=== PATIENT | female | born 1980 | race Caucasian/White ===

== ENCOUNTER 2020-10-10 09:14 | Outpatient (RCR) | payer OTHER, SELFPAY | END 2021-01-08 23:59 | disposition home or self-care (01) | LOC: ANHBWCAUD 09:14 | DX: Z46.1 Encounter for fitting and adjustment of hearing aid (principal) | CPT/HCPCS: V5014 ==

== ENCOUNTER 2021-05-03 08:29 | Outpatient (CLI) | payer OTHER, SELFPAY | END 2021-05-03 08:30 | disposition home or self-care (01) | LOC: ANHBWCAUD 08:30 | PROVIDERS: Visit Provider Otolaryngology | DX: H66.90 Otitis media, unspecified, unspecified ear (principal); H90.6 Mixed conductive and sensorineural hearing loss, bilateral | CPT/HCPCS: 92557 ==

== ENCOUNTER 2021-05-22 09:31 | Outpatient (RCR) | payer OTHER, SELFPAY | END 2021-08-20 23:59 | disposition home or self-care (01) | LOC: ANHBWCAUD 09:31 | PROVIDERS: Visit Provider Otolaryngology | DX: Z46.1 Encounter for fitting and adjustment of hearing aid (principal) | CPT/HCPCS: V5160; V5261; V5264 ==

== ENCOUNTER 2021-08-14 01:07 | Day surgery (SDC) | payer OTHER, SELFPAY ==
[2021-08-09 13:24] VITALS: BMI 31.8
--- NOTE | 2021-08-09 14:04 | PC.NURSE ---
Report to the Outpatient Waiting Room, entrance under the green pavilion located off [facility], at time __07:45 on date __08/14/21 . OR Time: ___09:45 . - You and your visitor will be asked a series of questions to screen for COVID 19 for your protection. - A mask is required within the hospital. - Only one visitor is allowed at this time. Patient visitors will be guided where to wait when not with patient. Preoperative COVID Testing Requirements: No COVID Test needed if: (proof is required; if not received patient will have Rapid Test prior to entry) - Patient has received COVID Vaccine at least 14 days prior to procedure date or - Patient has positive COVID test result within last 90 days of surgery date. COVID Test needed if above criteria is not met If not COVID vaccinated a COVID test must be conducted within 72 hours of surgery and patient is asked to isolate self from time of testing until procedure. You will go to the [facility] for your COVID testing. The [facility] site is located at the corner of [address] [facility]. You will only be called if COVID results are positive and your surgeon may reschedule your elective surgery date. ATTENTION: PLEASE GIVE TO THE PATIENT!!! Patients may have clear liquids (water, carbonated beverages, clear teas, apple juice) until 3 hours prior to surgery with a maximum of 20 ounces. STOP CLEAR LIQUIDS @ 0645 ON THE MORNING OF SURGERY - No food from midnight until time of surgery - Infants may have breast milk until 4 hours before surgery, infant formula 6 hours prior to surgery. - Children will be allowed to drink immediately following surgery. If applicable, please bring a bottle or sippy cup to assist with drinking. Juice, water, soda, and popsicles are readily available. For infants on formula, please bring formula the day of surgery. Pacifiers are allowed. Take the following medications with a SIP of water the morning of surgery: KEPPRA, GABAPENTIN, ALBUTEROL, CLONAZEPAM, METHODONE Medications to discontinue per physician N/A Date to take last dose_N/A Please no make-up, nail greenlandic, hairspray, perfume, deodorant, or body powder the day of surgery. No jewelry (including any body piercings) or valuables the day of surgery, leave them at home. Please take a shower or bath the night before, or the morning of, surgery with an antibacterial soap. Wear comfortable, loose fitting clothing. Children are encouraged to wear pajamas. - Jewelry must be removed prior to entering the operating room. Rings and piercings that are not removed may be cut off. - The hospital will not accept responsibility for valuables. - Please leave all valuables, including medications, at home the day of surgery. If you are going home after surgery, a licensed jukebox route driver must drive you home. - NO public transportation without another adult. - We recommend that an adult stay with you for 24 hours following discharge. - We also recommend that you do not drive, make important decision, drink alcoholic beverages, or take any drugs that were not prescribed by your health care provider for at least 24 hours after your discharge time. For Pediatric surgeries, we recommend two adults accompany the child home (only one inside the building at this time). Follow any additional instructions given to you from your surgeon. Telephone instructions given to AGNIESZKA and asked if any additional questions and then verbalized understanding. Patient advised to call surgeon office or pre surgery nurse liaison [phone] if any additional questions. WE WILL NOTIFY YOU THE AFTERNOON BEFORE SURGERY, 08/13/21, IF YOUR SURGERY TIME IS CHANGED
--- NOTE | 2021-08-13 13:46 | P.PNAN_ITS ---
Anes - Initial Pre Proc Eval Procedure: Operation Date: 08/14/21 09:45 Proposed Procedures p Excision Cyst Behind Right Ear - Eugenio Troncoso MD Date/Time: 08/13/21 13:46 Surgeon: Eugenio Troncoso MD Pre Op Diagnosis: Ear Cyst Behind Right Ear Patient Data Age: 41 Gender: F Height: 1.65 m Weight: 87 kg Allergies Allergy/AdvReac Type Severity Reaction Status Date / Time Penicillins Allergy Severe Anaphylaxis Verified 08/14/21 08:07 tramadol Allergy Severe Itching Verified 08/14/21 08:07 amoxicillin Allergy Unknown Unknown Verified 07/30/21 09:50 ERYTHROMYCIN LACTOBIONATE Allergy Mild Nausea and Uncoded 08/14/21 08:08 Vomiting Home Medications Medication Instructions Recorded Confirmed Type albuterol sulfate 90 mcg/actuation 1 inh INHALATION Q4-6H PRN 02/01/21 08/14/21 History breath activated powder inhaler clonazepam 0.5 mg tablet 0.5 mg PO TID tablet 02/01/21 08/14/21 History methadone 10 mg tablet 240 mg PO DAILY tablet 02/01/21 08/14/21 History gabapentin 400 mg PO TID 08/09/21 08/14/21 History levetiracetam [Keppra] 750 mg PO DAILY 08/09/21 08/14/21 History Patient hx anesthesia problems: none Family hx anesthesia problems: none Results Review: All pre-operative results and documents have been reviewed as part of the pre-operative evaluation. [facility] Past Medical History Medical History Anxiety Asthma Chronic otitis media COPD (chronic obstructive pulmonary disease) Dermoid cyst of right ear Obesity PONV (postoperative nausea and vomiting) Seizure last 06/2021 Tobacco abuse Family History Family History Other Family history of coronary artery disease Hypertension Social History Social History Smoking packs per day: 1 Smoking cigarettes per day: 20.0 Years smoked: 20 Smoking pack-years: 20.00 Smoking status: Current every day smoker Tobacco type: cigarettes Second hand tobacco smoke exposure: No Alcohol intake: never Substance use: never Living arrangements: with family Spiritual care concerns: No Anes - Eval Final PreProcedure Day of Procedure 08/13/21 13:46 Patient weight: obese Heart: regular rate and rhythm Lungs: clear to auscultation and normal air movement Airway: Mallampati scale class II Neurological: alert and oriented Last oral intake: >/= 8 hours ASA classification: III Emergent: no Anesthetic plan: proceed Anesthesia type and monitoring: general ETT Results Review: All pre-operative results and documents have been reviewed as part of the pre-operative evaluation. Informed Consent: The patient's anesthetic plan and its attendant risks and benefits were discussed with the patient/family/POA. Questions were solicited and answers provided to the satisfaction of the patient/family/POA.
--- NOTE | 2021-08-14 05:47 | PM.HPGS ---
History of Present Illness History of Present Illness Consent: Risks, benefits, and alternatives have been discussed and questions answered. Patient agrees to proceed with procedure. Chief complaint: Ear Cyst Behind Right Ear Narrative: aMrly Jones is a 41 year old female with a recurrence of cyst behind the right ear Review of Systems Review of Systems: All systems reviewed & are unremarkable except as noted in HPI and below PMFSH Past Medical History Medical History Anxiety Asthma Chronic otitis media COPD (chronic obstructive pulmonary disease) Dermoid cyst of right ear Obesity PONV (postoperative nausea and vomiting) Seizure last 06/2021 Tobacco abuse Family History Family History Other Family history of coronary artery disease Hypertension Social History Social History Smoking packs per day: 1 Smoking cigarettes per day: 20.0 Years smoked: 20 Smoking pack-years: 20.00 Smoking status: Current every day smoker Tobacco type: cigarettes Second hand tobacco smoke exposure: No Alcohol intake: never Substance use: never Living arrangements: with family Spiritual care concerns: No Meds Home Medications and Allergies Home Medications Medication Instructions Recorded Confirmed Type albuterol sulfate 90 mcg/actuation 1 inh INHALATION Q4-6H PRN 02/01/21 08/09/21 History breath activated powder inhaler clonazepam 0.5 mg tablet 0.5 mg PO TID tablet 02/01/21 08/09/21 History methadone 10 mg tablet 240 mg PO DAILY tablet 02/01/21 08/09/21 History gabapentin 400 mg PO TID 08/09/21 08/09/21 History levetiracetam [Keppra] 750 mg PO DAILY 08/09/21 08/09/21 History Allergies Allergy/AdvReac Type Severity Reaction Status Date / Time acetaminophen Allergy Unknown ITCHING Verified 07/30/21 09:50 amoxicillin Allergy Unknown Unknown Verified 07/30/21 09:50 Penicillins Allergy Unknown Unknown Verified 07/30/21 09:50 tramadol Allergy Unknown Unknown Verified 07/30/21 09:50 ERYTHROMYCIN LACTOBIONATE Allergy Unknown Unknown Uncoded 07/30/21 09:50 Exam Narrative: Chest clear heart without murmurs abdomen soft cyst behind the right ear 2.5 cm Assessment and Plan Additional Plan Plan is removal cyst behind the right ear
--- NOTE | 2021-08-14 05:48 | WPDHPUPDATE1 ---
History and Physical Update Update Date/Time: 08/14/21 05:48 History and Physical has been reviewed, including an updated exam of the patient. There are NO changes in the patient's condition. Risks, benefits, and alternatives have been discussed and questions answered. Patient agrees to proceed with procedure.
[2021-08-14 08:03] VITALS: BP 152/93; PULSE 68; RESP 16; TEMP 36.3; O2SAT 98
[2021-08-14] MEDS: LACTATED RINGERS 1,000 ML 30 ML IV CONT (08:22)
[2021-08-14] MEDS: LIDO 1%/EPINEPHRINE 1:100,000 50 ML VIAL INFILTRATE (09:37)
--- NOTE | 2021-08-14 09:41 | W.PM.PROC2 ---
Procedure Note - Detailed Date of Procedure 08/14/21 Pre-op Diagnosis Ear Cyst Behind Right Ear Post-op Diagnosis same Procedure Performed Excision cyst behind the right ear Surgeon Eugenio Troncoso MD Description of Procedure Patient was prepped local anesthesia by in the right ear an incision was made the cyst was identified removed and closed with 5 0 chromic
[2021-08-14] MEDS: NEOMYCIN/POLYMYXIN/BACITRACIN OINTMENT 15 GM TUBE 1 APPLIC TOPICAL (09:47)
[2021-08-14 09:50] VITALS: BP 119/75; PULSE 60; RESP 14; O2SAT 100
[2021-08-14] MEDS: oxyCODONE HCL (*CRX) 5 MG TAB IR PO (10:16)
[2021-08-14 10:20] VITALS: BP 141/94; PULSE 59
== END 2021-08-14 10:40 | disposition home or self-care (01) ==
PROVIDERS: Visit Provider Otolaryngology
PROC: (CPT 11440; principal; 2021-08-14 09:45)
DX: L72.0 Epidermal cyst (principal); J44.9 Chronic obstructive pulmonary disease, unspecified; F41.9 Anxiety disorder, unspecified; Z79.51 Long term (current) use of inhaled steroids; E66.9 Obesity, unspecified; Z68.33 Body mass index [BMI] 33.0-33.9, adult; F17.210 Nicotine dependence, cigarettes, uncomplicated
CPT/HCPCS: 11440; 88304; 88305; A9270; J2250; J2704; J3010; J7120